=== PATIENT | male | born 1990 | race Caucasian/White ===

== ENCOUNTER 2017-06-03 17:56 | Emergency (ER) | payer BC ==
[~2017-06-03] VITALS: Ht 182.9 cm; Wt 64.1 kg
[2017-06-03] MEDS ORDERED: FLEXERIL10 MG PO (19:28)
[2017-06-03] MEDS ORDERED: PERCOCET 5/31 TABLET PO (19:28)
[2017-06-03 19:39] VITALS: BP 113/69
== END 2017-06-03 19:45 | disposition home or self-care (01) ==
LOC: EME 17:56
PROC: 2W39XYZ Immobilization of Left Upper Extremity using Other Device (ICD-10-PCS; principal; 2017-06-03)
DX: S40.012A Contusion of left shoulder, initial encounter (principal); Y09 Assault by unspecified means
CPT/HCPCS: 73030; 99281; 99283

== ENCOUNTER 2017-12-02 10:32 | Emergency (ER) | payer BC ==
[~2017-12-02] VITALS: Ht 182.9 cm; Wt 62.3 kg
[~2017-12-02 10:32] MED LIST: FLEXERIL10 MG PO; PERCOCET 5/31 TABLET PO
[2017-12-02] MEDS ORDERED: ZOFRAN ODT4 MG PO (11:58)
[2017-12-02] MEDS ORDERED: ULTRAM50 MG PO (11:58)
[2017-12-02 12:12] VITALS: BP 116/74
== END 2017-12-02 12:13 | disposition home or self-care (01) ==
LOC: EME 10:32
DX: T24.211A Burn of second degree of right thigh, initial encounter (principal); T23.221A Burn of second degree of single right finger (nail) except thumb, initial encounter; T31.0 Burns involving less than 10% of body surface; X16.XXXA Contact with hot heating appliances, radiators and pipes, initial encounter; R11.2 Nausea with vomiting, unspecified; F17.200 Nicotine dependence, unspecified, uncomplicated
CPT/HCPCS: 99281; 99284; J1885